=== PATIENT | male | born 2000 | race Caucasian/White ===

== ENCOUNTER 2022-01-07 10:21 | Outpatient (CLI) | payer OTHER, SELFPAY | END 2022-01-07 10:22 | disposition home or self-care (01) | LOC: AMB 01-26 12:52 | PROVIDERS: Visit Provider Family Medicine | DX: R07.89 Other chest pain (principal) | CPT/HCPCS: A0425; A0998 ==

== ENCOUNTER 2022-01-07 11:07 | Emergency (ER) | payer OTHER, SELFPAY ==
[2022-01-07] VITALS (30 sets, daily range): BP systolic 61–217; BP diastolic 36–170; PULSE 66–87; RESP 16; TEMP 36.9; O2SAT 95–98; BMI 19.2
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
[2022-01-07 11:54] LABS: Basophils Percent Auto 0.7 % (0.0-3.0); Eosinophils Percent Auto 0.2 % (0.0-7.0); Hematocrit 42.1 % (37.0-53.0); Immature Granulocytes Pct Auto 1.2 %; Lymphocytes Percent Auto 28.9 % (20-44); Mean Corpuscular HGB Conc 33 gm/dL (32-36); Mean Corpuscular Hemoglobin 29 pg (26-34); Mean Corpuscular Volume 86 fL (80-100); Monocytes Percent Auto 11.1 % (0.0-11.0); Neutrophils Percent Auto 57.9 % (42.0-72.0); Platelet Count* 183 K/uL (140-440); Red Blood Count 4.89 m/uL (4.30-5.90); White Blood Count* 4.15 K/uL (4.50-11.00)
[2022-01-07 11:56] LABS: Slide Review Reflex No
[2022-01-07 12:11] LABS: D Dimer Quantitative* 3.62 ug/ml (0.00-0.50)
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
[2022-01-07 12:22] LABS: Troponin I* < 0.01 ng/mL (0.01-0.04)
[2022-01-07] MEDS: ACETAMINOPHEN 500 MG TABLET 1000 MG PO (13:09)
== END 2022-01-07 14:55 | disposition home or self-care (01) ==
PROVIDERS: Emergency Provider Family Medicine
DX: S20.219A Contusion of unspecified front wall of thorax, initial encounter (principal); V43.62XA Car passenger injured in collision with other type car in traffic accident, initial encounter; W22.12XA Striking against or struck by front passenger side automobile airbag, initial encounter
CPT/HCPCS: 36415; 71046; 71260; 84484; 85025; 85379; 93005; 99284; 99285; 99291; A9270; G0390; Q9967